=== PATIENT | male | born 1960 | race Caucasian/White ===

== ENCOUNTER → 2024-09-08 10:56 | Outpatient (REF) | payer BC, SELFPAY ==
--- NOTE | 2024-09-08 10:56 | S_PTH ---
PATIENT: Burke Hawkins LOC: ANAB #:[id number] AGE/SX: 64/M ROOM: RE09/08/[address]: Shai Powell MD : 1960 BED: DIS: SPEC #: [id number] RECD: 09/08/24 12:53 STATUS: ARMANDO REShahida #: [id number] CHRISTEN: 09/08/24 10:[address]: Shai Powell DEPT: [facility] Surgical RECD BY: Tiffany Damon ENTERED: 09/08/24 12:54 SP TYPE: Surgical OTHR DR: Jonnathan Don MD Tissues: A - Mass Procedures: Hematoxylin and Eosin Stain Gross and Microscopic Level 3
--- OUTSIDE RECORDS SUMMARY | 2024-09-08 12:17 | XMS_ITS | Clinical Summary ---
Author Organization [facility] Address [address] [place] [address] Care Team Providers Care [employer] Name Role Phone Jalen Allred MD Primary Care Provider [phone] Source Comments [facility],non-owned Affiliates and Associated Physician Practices is amultiple site organization consisting of ambulatory clinics and hospital sitesin [place], [place], [place] and [place]. This disclosure is being madepursuant to the Care Everywhere program and may not contain all information available regarding this patient. Last updated 17.[facility] Allergies Active Allergy Reactions Criticality Noted Date Comments Penicillins Urticaria Medium 06/13/2018 Medications * Be aware that medications may not be up to date on this document. Alwaysverify current medications with the patient. No known medications Social History Tobacco Use Types Packs/Day Years Used Date Smoking Tobacco: Never Assessed Sex and Gender Information Value Date Recorded Sex Assigned at Not on file Legal Sex Male 8:14 PM CDT Gender Identity Not on file Sexual Orientation Not on file Last Filed Vital Signs Vital Sign Reading Time Taken Comments Blood Pressure 132/78 06/13/2018 11:55 AM CDT Pulse 74 06/13/2018 11:55 AM CDT Temperature 36.7 C (98 F) 06/13/2018 11:55 AM CDT Respiratory Rate 16 06/13/2018 11:55 AM CDT Oxygen Saturation 98% 06/13/2018 11:55 AM CDT Inhaled Oxygen Concentration - - Weight 86.2 kg (190 lb) 06/13/2018 11:55 AM CDT Height 180.3 cm (5' 11) 06/13/2018 11:55 AM CDT Body Mass Index 26.5 06/13/2018 11:55 AM CDT Plan of Treatment Health Maintenance Due Date Last Done Comments COLOGUARD (AGES 45-75) - COL ON CA SCREENING 1960 COLON MONITORING 1960 COLONOSCOPY - COLON CA SCREENING 1962 CT COLONOGRAPHY - COLON CA SCREENING 1960 Colorectal Cancer Screening 1960 FIT - COLON CA SCREENING 1962 FLEX SIG - COLON CA SCREENING 1960 LIPID TESTING 1960 HIV SCREENING 1977 HEPATITIS C SCREENING 07/01/1980 DTAP/TDAP/TD VACCINES (1 - Tdap) 1981 PNEUMOCOCCAL VACCINE 50+ (1 of 1 - PCV) 2012 ZOSTER VACCINE (1 of 2) 2012 SCREENING FOR DIABETES 06/13/2018 COVID-19 VACCINE (1 - 2023-2 5 season) 2023 DEPRESSION SCREENING 04/02/2024 INFLUENZA VACCINE (Season Ended) 2024 Respiratory Syncytial Virus (RSV) Vaccine Pt: or over 60 yrs (1 - 1-dose 75+ series) 2037 HEPATITIS B VACCINE Aged Out No longe r eligible based on patient's age to complete this topic HIB VACCINE Aged Out No longer eligi ble based on patient's age to complete this topic HPV VACCINE Aged Out No longer eligi ble based on patient's age to complete this topic MENINGOCOCCAL (Group B) VACC INE SHARED DECISION-MAKING Aged Out No longer eligibl e based on patient's age to complete this topic MENINGOCOCCAL GROUPS A/C/Y/W VACCINE Aged Out No longer eligible b ased on patient's age to complete this topic Care Teams [employer] Relationship Specialty Start Date End Date Jalen Allred MD [address] [place] [address] PCP - General Internal Medicine 06/13/18
== END ==
LOC: ANHLAB 10:56
PROVIDERS: PCP Family Medicine; Visit Provider Plastic Surgery
DX: R22.31 Localized swelling, mass and lump, right upper limb (principal); L30.9 Dermatitis, unspecified
CPT/HCPCS: 88304